=== PATIENT | female | born 1965 | race Caucasian/White ===

== ENCOUNTER 2017-05-13 15:10 | Observation (INO) ==
[2017-05-13] MEDS ORDERED: *HR* HYDROmorphone (PF) 1 MG/ML SYRINGE IVP ONE ×2 (15:51→17:38)
[2017-05-13] MEDS ORDERED: Ondansetron 4 MG/2 ML VIAL IVP ONE (16:45)
[2017-05-13 16:54] LABS: Basophils % 0.4 %; Eosinophils # 0.2 K/mcL (0.0-0.6); Eosinophils % 1.3 %; Hemoglobin 15.1 g/dL (11.5-15.4); Immature Granulocytes % 0.4 % (0-4); Lymphocytes # 1.9 K/mcL (0.6-4.6); Lymphocytes % 17.2 %; Mean Corpuscular HGB Conc 32.8 g/dL (31.6-35.5); Mean Corpuscular Hemoglobin 31.3 pg (28.0-33.3); Mean Corpuscular Volume 95.4 fL (83.0-100.0); Mean Platelet Volume 10.7 fL (9.4-12.4); Monocytes # 0.6 K/mcL (0.0-1.3); Monocytes % 5.5 %; Neutrophils # 8.4 K/mcL (1.6-8.9); Platelet Count 228 K/mcL (140-400); Red Blood Count 4.82 M/mcL (3.82-4.97); Red Cell Distribution Width 12.9 % (11.5-14.5); Segmented Neutrophils % 75.2 %
[2017-05-13 17:08] LABS: Alanine Aminotransferase 37 Units/L (0-55); Albumin 3.7 g/dL (3.5-5.0); Albumin/Globulin Ratio 1.2 (1.1-2.2); Alkaline Phosphatase 104 Units/L (38-126); Aspartate Amino Transferase 21 Units/L (5-34); BUN/Creatinine Ratio 15 (6-26); Blood Urea Nitrogen 12 mg/dL (7-20); Calcium 10.2 mg/dL (8.6-10.8); Carbon Dioxide 23 mEq/L (19-29); Chloride 109 mEq/L (98-109); Globulin 3.2 g/dL (2.4-3.5); Glucose 100 mg/dL (70-99); Osmolality,Calculated 292 (280-300); Potassium 4.1 mEq/L (3.5-4.5); Sodium 141 mEq/L (136-145); Total Protein 6.9 g/dL (6.0-8.3); eGFR For African Americans > 60 (> 60); eGFR For Non-African Americans > 60 (> 60)
[2017-05-13 17:17] LABS: Bilirubin,Total 0.5 mg/dL (0.2-1.2)
[2017-05-13] MEDS ORDERED: Ondansetron 4 MG/2 ML VIAL IVP PRN (18:13)
[2017-05-13] MEDS ORDERED: *HR* Morphine 2 MG/ML SYRINGE IVP PRN (18:13)
[2017-05-13] MEDS ORDERED: Naloxone 0.4 MG/ML INJ IVP PRN (18:13)
[2017-05-13] MEDS ORDERED: Ketorolac 15 MG/ML VIAL IVP PRN (18:13)
[2017-05-13] MEDS ORDERED: *HR* Promethazine 25 MG/ML VIAL IVP PRN (18:13)
[2017-05-13] MEDS ORDERED: 0.9 % Sodium Chloride 1,000 ML IVC SCH (18:15)
[2017-05-13 18:44] LABS: Bilirubin,Urine Negative (Negative); Blood,Urine Large (Negative); Clarity,Urine Cloudy (Clear); Color,Urine Yellow (Yellow); Glucose,Urine (UA) Normal (Normal); Ketones,Urine Negative (Negative); Leukocyte Esterase,Urine Small (Negative); Nitrite,Urine Negative (Negative); Protein,Urine Trace mg/dL (Neg-Trace); Specific Gravity,Urine 1.023 (1.010-1.025); Urobilinogen,Urine Normal (Normal)
[2017-05-13 18:45] LABS: Bacteria,Urine None Seen per hpf (None-Few); Hyaline Casts,Urine None Seen per lpf (None-Few); RBC,Urine TNTC per hpf (0-3); Squamous Epithelial Cell,Urine Many per lpf (None-Few)
[2017-05-13 19:16] LABS: Uric Acid Crystals,Urine Present
[2017-05-13] MEDS ORDERED: *HR* HYDROcodone/Acet 5/325 mg TABLET PO PRN (20:00)
--- NOTE | 2017-05-13 20:04 | Urology History & Physical ---
Date of Encounter: 05/13/17 Time of Encounter: 20:02 Assessment and Plan (1) Ureteral stone with hydronephrosis Current Visit: No Status: Acute I personally reviewed the CT scan which reveals a 8 mm proximal ureteral stone. Her pain has not allowed her to be discharged to manage the stone on an outpatient basis. Based on the large stone and proximal position we'll proceed with cystoscopy and ureteral stent placement. We did discuss alternative options including in situ stone extraction, outpatient ESWL, nephrostomy tube placement. Patient agrees with stent placement. We discussed the risks including injury to her urinary tract, stent discomfort, stricture, reaction to contrast. We'll follow urine culture but I do not suspect a urinary tract infection. History of Present Illness Chief complaint: left flank pain HPI: Ms. Whitfield is a 52 year old female with a strong history of kidney stones. Recent onset of left flank pain. Quite severe requiring emergency room visit. CT scan in the emergency room revealed an 8 mm ureteropelvic junction stone with moderate hydronephrosis. Intractable pain requiring admission. Past Med Surg Social Fam HX - Past Medical History Medical history: arthritis, coronary artery disease, GERD, hyperlipidemia, kidney stones Psychiatric history: no psych history - Past Surgical History Surgical History: appendectomy, , cholecystectomy, orthopedic, other - Social History Smoking Status: Current every day smoker Packs per day: 1 Smokeless Tobacco Status: No Alcohol use: occasionally Drug use: none - Family History Mother Living Status: Hx Family Cardiac Disorders: Yes Hx Family Respiratory Disorders: No Hx Family Cancer: Yes (Colon Cancer) Hx Family GI Disorders: Yes Hx Family Endocrine Disorder: Yes (Grandfather) Hx Family Neuromuscular Disorders: No Hx Family Neurologic Disorders: No Hx Family HEENT Disorders: No Hx Family Autoimmune Disorders: No Medications and Allergies Atorvastatin Calcium [Lipitor] 40 mg PO HS 11/13/15 [History] Isosorbide MONOnitrate (24 HR) [Imdur] 60 mg PO HS #0 11/13/15 [History] Meloxicam [Mobic] 15 mg PO HS 11/13/15 [History] Metoprolol [Lopressor] 12.5 mg PO BID 11/13/15 [History] Nitroglycerin [Nitrostat] 0.4 mg SL Q5M PRN 11/13/15 [History] Pantoprazole Sodium [Protonix] 20 mg PO BID 11/13/15 [History] Ranolazine [Ranexa] 1,000 mg PO DAILY 11/13/15 [History] Aspirin Enteric Coated [Aspirin EC] 81 mg PO DAILY 11/22/15 [History] HYDROcodone/Acet 5/325 mg [[place] 5-325 mg] 1 tab PO Q6H PRN 05/13/17 [History] 3 Allergy/AdvReac Type Severity Reaction Status Date / Time Amoxicillin [From Augmentin] Allergy Hives Verified 07/18/16 09:14 clavulanic acid Allergy Hives Verified 07/18/16 09:14 [From Augmentin] Sulfa (Sulfonamide AdvReac yeast Verified 07/18/16 09:14 Antibiotics) infection Review of Systems - Constitutional fatigue, no chills, no fever(s) - EENT Nose, mouth and throat: no dizziness - Cardiovascular no chest pain - Respiratory no cough - Gastrointestinal abdominal pain, nausea - Genitourinary Genitourinary: flank pain - Musculoskeletal back pain - Integumentary no erythema - Neurological no confusion - Psychiatric no anxiety - Hematologic/Lymphatic no easy bleeding - Allergic/Immunologic no throat swelling Exam Initial Vital Signs Temp Pulse Resp BP Pulse Ox 98 F 86 18 165/92 98 05/13/17 15:23 05/13/17 15:23 05/13/17 15:23 05/13/17 15:23 05/13/17 15:23 - General physical appearance Present: well developed, no distress - Eyes Present: PERRL - ENT Present: normal nares - Neck Present: no masses - Respiratory Present: normal respiratory effort - Cardiovascular Cardiovascular exam IM: RRR - Abdomen Abdomen: Present: soft - Integumentary Present: no rash - Neurologic Present: normal coordination. Absent: disoriented, confused - Additional Findings left CVA tenderness Urology Results - Labs 05/13/17 16:38 05/13/17 16:38 Abnormal lab results Hct 46.0 % (35.3-44.9) H 05/13/17 16:38 Glucose 100 mg/dL (70-99) H 05/13/17 16:38 Urine Clarity Cloudy (Clear) A 05/13/17 18:33 Urine Blood Large (Negative) H 05/13/17 18:33 Ur Leukocyte Esterase Small (Negative) H 05/13/17 18:33 Urine Microscopic RBC TNTC per hpf (0-3) H 05/13/17 18:33 Urine Microscopic WBC 5-15 per hpf (0-3) H 05/13/17 18:33 Ur Squamous Epith Cells Many per lpf (None-Few) H 05/13/17 18:33 Ur Culture Indicated? YES (NO) A 05/13/17 18:33 All other labs normal.
[2017-05-13] MEDS: Nicotine 21 MG PATCH.TD24 TD SCH (21:21)
[2017-05-13] MEDS: *HR* HYDROmorphone (PF) 1 MG/ML SYRINGE IVP PRN (22:37)
--- NOTE | 2017-05-13 23:09 | Emergency Department Note ---
Disposition Clinical Impression: Kidney stone Disposition: Admitted As Inpatient Condition: Fair General Adult HPI - General Chief complaint: ED Back Pain/Injury Stated complaint: kidney stone Time Seen by Provider: 05/13/17 15:27 Source: patient Limitations: no limitations Nursing Notes Reviewed: Yes Vital Signs Reviewed: Yes - History of Present Illness HPI Narrative: This is a 52-year-old female presents with complaints of left flank pain. The onset of her pain was earlier today. The symptoms are similar to when she had passed kidney stones. She complains of isolated flank pain without dysuria. She has no fever, vomiting, recent trauma. She does follow with Dr. Morton in urology. General: No acute distress HEENT: Pupils equal and reactive to light, extraoccular muscle movement is normal, TMS are clear bilaterally. Heart: RRR, No murmor rub or gallop Lungs: lungs clear, no wheezing, rales or ronchi. ABD: Left flank pain with significant CVA tenderness on examination Extremities: No cyanosis, clubbing or edema Neuro: CN 2-12 in tact, no focal deficit. strength 5/5. Medical decision making This is a 52-year-old male patient presents with concern for flank pain. Findings are consistent with obstructive uropathy. 8 mm stone at the UPJ. Plan to admit for evaluation by urological services. Patient will be admitted for pain control. I did discuss the case with Dr. Morton who is agreeable to admit the patient for pain control. Patient will be nothing by mouth after midnight. Pain Scale: 10 - Related Data Home Medications Medication Instructions Recorded Confirmed Atorvastatin Calcium [Lipitor] 40 mg PO HS 11/13/15 05/13/17 Isosorbide MONOnitrate (24 HR) 60 mg PO HS #0 11/13/15 05/13/17 [Imdur] Meloxicam [Mobic] 15 mg PO HS 11/13/15 05/13/17 Metoprolol [Lopressor] 12.5 mg PO BID 11/13/15 05/13/17 Nitroglycerin [Nitrostat] 0.4 mg SL Q5M PRN 11/13/15 05/13/17 Pantoprazole Sodium [Protonix] 20 mg PO BID 11/13/15 05/13/17 Ranolazine [Ranexa] 1,000 mg PO DAILY 11/13/15 05/13/17 Aspirin Enteric Coated [Aspirin EC] 81 mg PO DAILY 11/22/15 05/13/17 HYDROcodone/Acet 5/325 mg [[place] 1 tab PO Q6H PRN 05/13/17 05/13/17 5-325 mg] Allergies Allergy/AdvReac Type Severity Reaction Status Date / Time Amoxicillin [From Augmentin] Allergy Hives Verified 07/18/16 09:14 clavulanic acid Allergy Hives Verified 07/18/16 09:14 [From Augmentin] Sulfa (Sulfonamide AdvReac yeast Verified 07/18/16 09:14 Antibiotics) infection All systems ED: reviewed and negative except as stated. Past Medical History - Past Medical History Medical history: Reports: arthritis, coronary artery disease, GERD, hyperlipidemia, kidney stones Surgical history: Reports: appendectomy, , cholecystectomy, orthopedic , other Psychiatric history: Reports: no psych history NEWSPAPER JOURNALIST history: Reports: no NEWSPAPER JOURNALIST history - Social History Smoking Status: Current every day smoker Smokeless Tobacco Status: No Alcohol use: Reports: occasionally Drug use: Reports: none Physical Exam - General Limitations: no limitations General appearance: alert, in no apparent distress Course Vital Signs Temperature 98 F 05/13/17 15:23 Pulse Rate 86 05/13/17 15:23 Respiratory Rate 18 05/13/17 15:23 Blood Pressure 165/92 05/13/17 15:23 O2 Sat by Pulse Oximetry 98 05/13/17 15:23 Temperature 97.9 F 05/13/17 16:06 Pulse Rate 75 05/13/17 16:06 Respiratory Rate 20 05/13/17 16:06 Blood Pressure 156/84 05/13/17 16:06 O2 Sat by Pulse Oximetry 96 05/13/17 19:29 Oxygen Delivery Oxygen Delivery Room Air Medical Decision Making - Lab Data Result diagrams: 05/13/17 16:38 05/13/17 16:38 Lab Results 05/13/17 05/13/17 Range/Units 16:38 16:38 WBC 11.1 (4.3-11.1) K/mcL RBC 4.82 (3.82-4.97) M/mcL Hgb 15.1 (11.5-15.4) g/dL Hct 46.0 H (35.3-44.9) % MCV 95.4 (83.0-100.0) fL MCH 31.3 (28.0-33.3) pg MCHC 32.8 (31.6-35.5) g/dL RDW 12.9 (11.5-14.5) % Plt Count 228 (140-400) K/mcL MPV 10.7 (9.4-12.4) fL Immature Gran % 0.4 (0-4) % Seg Neutrophils % 75.2 % Lymphocytes % 17.2 % Monocytes % 5.5 % Eosinophils % 1.3 % Basophils % 0.4 % Neutrophils # 8.4 (1.6-8.9) K/mcL Lymphocytes # 1.9 (0.6-4.6) K/mcL Monocytes # 0.6 (0.0-1.3) K/mcL Eosinophils # 0.2 (0.0-0.6) K/mcL Basophils # 0.0 (0.0-0.2) K/mcL Sodium 141 (136-145) mEq/L Potassium 4.1 (3.5-4.5) mEq/L Chloride 109 (98-109) mEq/L Carbon Dioxide 23 (19-29) mEq/L BUN 12 (7-20) mg/dL Creatinine 0.82 (0.57-1.11) mg/dL Est GFR ( Amer) > 60 (> 60) Est GFR (Non-Af Amer) > 60 (> 60) BUN/Creatinine Ratio 15 (6-26) Glucose 100 H (70-99) mg/dL Calculated Osmolality 292 (280-300) Calcium 10.2 (8.6-10.8) mg/dL Total Bilirubin 0.5 (0.2-1.2) mg/dL AST 21 (5-34) Units/L ALT 37 (0-55) Units/L Alkaline Phosphatase 104 (38-126) Units/L Serum Total Protein 6.9 (6.0-8.3) g/dL Albumin 3.7 (3.5-5.0) g/dL Globulin 3.2 (2.4-3.5) g/dL Albumin/Globulin Ratio 1.2 (1.1-2.2)
[2017-05-14] MEDS: *HR* HYDROmorphone (PF) 1 MG/ML SYRINGE IVP PRN ×4 (02:46→09:58)
[2017-05-14] MEDS: Nicotine 21 MG PATCH.TD24 TD SCH (08:05)
[2017-05-14] MEDS ORDERED: levoFLOXacin 500 MG TABLET PO SCH (09:00)
--- NOTE | 2017-05-14 12:06 | Anesthesia Evaluation PreOp ---
Date of Encounter: 05/14/17 Time of Encounter: 12:04 - Past History Planned Operation: Left Cystoscopy with stent insertion Cardiac History: HTN, Hyperlipidemia, Cardiac Stent (2010) Pulmonary History: Smoker Other Medical History: Renal (Stones), GERD Anesthesia History: Past Anesthesia (EGD,Kidney stones , appy, GB) : No Alcohol Use: occasionally Drug use: none Medications and Allergies Atorvastatin Calcium [Lipitor] 40 mg PO HS 11/13/15 [History] Isosorbide MONOnitrate (24 HR) [Imdur] 60 mg PO HS #0 11/13/15 [History] Meloxicam [Mobic] 15 mg PO HS 11/13/15 [History] Metoprolol [Lopressor] 12.5 mg PO BID 11/13/15 [History] Nitroglycerin [Nitrostat] 0.4 mg SL Q5M PRN 11/13/15 [History] Pantoprazole Sodium [Protonix] 20 mg PO BID 11/13/15 [History] Ranolazine [Ranexa] 1,000 mg PO DAILY 11/13/15 [History] Aspirin Enteric Coated [Aspirin EC] 81 mg PO DAILY 11/22/15 [History] HYDROcodone/Acet 5/325 mg [[place] 5-325 mg] 1 tab PO Q6H PRN 05/13/17 [History] 3 Allergy/AdvReac Type Severity Reaction Status Date / Time Amoxicillin [From Augmentin] Allergy Hives Verified 07/18/16 09:14 clavulanic acid Allergy Hives Verified 07/18/16 09:14 [From Augmentin] Sulfa (Sulfonamide AdvReac yeast Verified 07/18/16 09:14 Antibiotics) infection - Meds/Allergy Pre-op Review Medications Reviewed: Yes Allergies Reviewed: Yes Beta Blockers on Current Med List: No Anesthesia Results - Labs 05/13/17 16:38 05/13/17 16:38 - Imaging EKG: image reviewed (SR) Anesthesia Exam O2 Sat Height 1.63 m Height 1.63 m Weight 85.7 kg Weight 76.204 kg O2 Sat by Pulse Oximetry 90 O2 Sat by Pulse Oximetry 91 O2 Sat by Pulse Oximetry 95 O2 Sat by Pulse Oximetry 94 O2 Sat by Pulse Oximetry 96 O2 Sat by Pulse Oximetry 96 O2 Sat by Pulse Oximetry 98 Vital Signs Temp Pulse Resp BP Pulse Ox 98 F 86 18 165/92 98 05/13/17 15:23 05/13/17 15:23 05/13/17 15:23 05/13/17 15:23 05/13/17 15:23 Vital Signs/O2 Sat, Most Current Temp Pulse Resp BP Pulse Ox 98.3 F 63 16 103/68 90 05/14/17 10:36 05/14/17 10:36 05/14/17 10:36 05/14/17 10:36 05/14/17 10:36 Height: 5'4'' Weight: 188# NPO (# of Hours): > 8 hrs Pain Scale: 0 Pain Scale Used: Numeric (1 - 10) - HEENT Pupil (Motor): Pupils equal, EOMI Mallampati: I Teeth: Edentulous Oral Opening: Greater than 3 - GRASSLAND CONSERVATIONIST LOC: Oriented GRASSLAND CONSERVATIONIST Motor: Normal RUE, Normal LUE, Normal RLE, Normal LLE, Normal Face GRASSLAND CONSERVATIONIST Sensory: Normal: RUE, LUE, RLE, LLE, Face - Cardiac Rhythm: Regular Murmur: None JVD: No Carotid Bruit: No - Pulmonary Breath Sounds: bilateral Clear Respiratory Effort: Symmetrical Anesthesia Assess/Plan ASA Score: 3 Modified [place] Scale for Level of Consciousness: Cooperative, oriented, and tranquil Anesthetic Plan: General Autologous Blood: Yes Monitoring Plan: Standard Monitors Recovery Plan: PACU
[2017-05-14] MEDS ORDERED: Scopolamine Patch 1.5 MG PATCH.TD72 TD ONE (12:13)
[2017-05-14] MEDS ORDERED: Scopolamine Patch 1.5 MG PATCH.TD72 ONE (12:19)
[2017-05-14] MEDS ORDERED: *HR* FentaNYL (PF) 100 MCG/2 ML VIAL ONE (12:20)
[2017-05-14] MEDS ORDERED: *HR* Rocuronium Bromide 50 MG/5 ML VIAL ONE (12:20)
[2017-05-14] MEDS ORDERED: *HR* Propofol 200 MG/20 ML VIAL IVP ONE (12:20)
[2017-05-14] MEDS ORDERED: *HR* Succinylcholine 200 MG/10 ML VIAL IVP ONE (12:20)
[2017-05-14] MEDS ORDERED: *HR* Midazolam HCl 2 MG/2 ML VIAL ONE (12:20)
[2017-05-14] MEDS ORDERED: Lidocaine -MPF 2% 2 ML VIAL ONE (12:20)
--- NOTE | 2017-05-14 12:21 | Discharge Summary ---
Date of Encounter: 05/14/17 Time of Encounter: 12:18 - Discharge Diagnosis (1) Ureteral stone with hydronephrosis Priority: Primary Status: Resolved Comments: s/p stent - Discharge Medications Prescriptions: HYDROcodone/Acet 5/325 mg [[place] 5-325 mg] 1 tab PO Q4HR PRN #15 tablet PRN Reason: MODERATE PAIN Phenazopyridine HCl [Pyridium] 200 mg PO TIDAC PRN #15 tab PRN Reason: burning with urination Home Medications: Atorvastatin Calcium [Lipitor] 40 mg PO HS 11/13/15 [History] Isosorbide MONOnitrate (24 HR) [Imdur] 60 mg PO HS #0 11/13/15 [History] Meloxicam [Mobic] 15 mg PO HS 11/13/15 [History] Metoprolol [Lopressor] 12.5 mg PO BID 11/13/15 [History] Nitroglycerin [Nitrostat] 0.4 mg SL Q5M PRN 11/13/15 [History] Pantoprazole Sodium [Protonix] 20 mg PO BID 11/13/15 [History] Ranolazine [Ranexa] 1,000 mg PO DAILY 11/13/15 [History] Aspirin Enteric Coated [Aspirin EC] 81 mg PO DAILY 11/22/15 [History] HYDROcodone/Acet 5/325 mg [[place] 5-325 mg] 1 tab PO Q4HR PRN #15 tablet [Rx] Phenazopyridine HCl [Pyridium] 200 mg PO TIDAC PRN #15 tab 05/14/17 [Rx] Allergies/Adverse Reactions: 3 Allergy/AdvReac Type Severity Reaction Status Date / Time Amoxicillin [From Augmentin] Allergy Hives Verified 07/18/16 09:14 clavulanic acid Allergy Hives Verified 07/18/16 09:14 [From Augmentin] Sulfa (Sulfonamide AdvReac yeast Verified 07/18/16 09:14 Antibiotics) infection Labs on day of discharge: Labs from last 24 hours 05/13/17 18:33 Urine Color Yellow Urine Clarity Cloudy A Urine pH 6.0 Ur Specific [place] 1.023 Urine Protein Trace Urine Glucose (UA) Normal Urine Ketones Negative Urine Blood Large H Urine Nitrite Negative Urine Bilirubin Negative Urine Urobilinogen Normal Ur Leukocyte Esterase Small H Urine Microscopic RBC TNTC H Urine Microscopic WBC 5-15 H Ur Squamous Epith Cells Many H Uric Acid Crystals Present Urine Bacteria None Seen Hyaline Casts None Seen Ur Culture Indicated? YES A Date of admission: 05/13/17 17:53 [facility] Discharging clinician: Law Morton Anticipated date of discharge: 05/14/17 - Patient Status Disposition: Home, Self-Care Condition: Good Functional capacity at discharge: independent ambulation - Discharge Instructions Follow Up With: [facility] [Primary Care Provider] - Law Morton MD [Partnered Physician] - (my office will call to schedule stone procedure. ) Forms: ED Satisfaction Letter Additional Instructions: expect stent discomfort call if symptoms are severe my office will call to arrange followup surgery for kidney stone. - Diet and Activity Activity: resume usual activities as tolerated Diet: advance to your usual diet - Hospital Course Hospital course: Ms. Whitfield is a 52 year old female admitted with a 8 mm UPJ stone. intractable pain. s/p stent placement. plan to discharge if pain controlled. - Time Spent with Patient Total time spent providing and/or coordinating discharge services: Exam Initial Vital Signs Temp Pulse Resp BP Pulse Ox 98 F 86 18 165/92 98 05/13/17 15:23 05/13/17 15:23 05/13/17 15:23 05/13/17 15:23 05/13/17 15:23 - General physical appearance Present: well developed, no distress
--- NOTE | 2017-05-14 12:28 | Operative Note ---
Date of procedure: 05/14/17 Pre-op diagnosis: 8 mm left UPJ stone Post-op diagnosis: same Procedure: cystoscopy, left retrograde pyelogram. left JJ stent Anesthesia: DANIAA Surgeon: Law Morton Estimated blood loss (cc): 0 Specimen: none Condition: stable Disposition: PACU Procedure in Detail: patient taken to the OR and placed supine. anesthesia applied without complication. she was prepped and draped in a sterile fashion. time out was performed. 21 uzbek scope placed. no gross abnormalities except dark orange urine. left UO cannulated and retrograde was performed which showed large filling defect. zip wire placed and 4.8 x 26 stent placed without complication. bladder drained. no complications.
[2017-05-14] MEDS ORDERED: Ondansetron 4 MG/2 ML VIAL IVP ONE (12:51)
[2017-05-14] MEDS ORDERED: *HR* HYDROmorphone (PF) 1 MG/ML SYRINGE IVP PRN ×2 (12:51→14:10)
[2017-05-14] MEDS ORDERED: *HR* Promethazine 25 MG/ML VIAL IVP PRN ×2 (12:51→14:10)
[2017-05-14] MEDS ORDERED: Dexamethasone 4 MG/ML VIAL ONE (12:53)
[2017-05-14] MEDS ORDERED: Ondansetron 4 MG/2 ML VIAL ONE (12:53)
[2017-05-14] MEDS ORDERED: Ringers Solution, Lactated 1,000 ML IVC SCH (13:00)
[2017-05-14 13:44] VITALS: BP 127/79
--- NOTE | 2017-05-14 13:57 | Anesthesia Evaluation Post Op ---
Date of Encounter: 05/14/17 Time of Encounter: 13:54 - Vital Signs Vital Signs: Vital Signs/O2 Sat, Most Current Temp Pulse Resp BP Pulse Ox 98.2 F 52 16 127/79 96 05/14/17 13:00 05/14/17 13:40 05/14/17 13:40 05/14/17 13:40 05/14/17 13:40 - Lungs Lungs: Clear Ascult./Percussion - Airway Airway: Non-obstructed - Cardiovascular Regular Rate - Mental Status Mental Status: Alert & Oriented, Answers Appropriately - Pain Pain Scale: 0 Pain Scale used: Numeric (1 - 10) - Nausea Vomiting Nausea Vomiting: Not Present - Hydration Hydration: Tolerates oral liquids - Discharge PostOp Status: Transfer Patient to floor Attestation: I have assessed this patient and find they meet discharge criteria.
[2017-05-14] MEDS ORDERED: Naloxone 0.4 MG/ML INJ IVP PRN (14:10)
[2017-05-14] MEDS ORDERED: Fluconazole 100 MG TABLET PO ONE (14:10)
[2017-05-14] MEDS ORDERED: *HR* Morphine 2 MG/ML SYRINGE IVP PRN (14:10)
[2017-05-14] MEDS ORDERED: Ketorolac 15 MG/ML VIAL IVP PRN (14:10)
[2017-05-14] MEDS ORDERED: 0.9 % Sodium Chloride 1,000 ML IVC SCH (14:10)
[2017-05-14] MEDS ORDERED: Ondansetron 4 MG/2 ML VIAL IVP PRN (14:10)
[2017-05-14] MEDS ORDERED: Nitroglycerin 0.4 MG TAB.SUBL SL PRN (14:10)
[2017-05-14] MEDS ORDERED: *HR* HYDROcodone/Acet 5/325 mg TABLET PO PRN ×2 (14:10)
[2017-05-14] MEDS ORDERED: Isosorbide MONOnitrate (24 HR) 60 MG TAB.ER.24H PO SCH (21:00)
[2017-05-15] MEDS ORDERED: Nicotine 21 MG PATCH.TD24 TD SCH (09:00)
[2017-05-15] MEDS ORDERED: Ranolazine 500 MG TAB.ER.12H PO SCH (09:00)
[2017-05-15] MEDS ORDERED: levoFLOXacin 500 MG TABLET PO SCH (09:00)
[2017-05-15] MEDS ORDERED: Aspirin Enteric Coated 81 MG Tablet PO SCH (09:00)
== END 2017-05-14 16:43 | disposition home or self-care (01) ==
LOC: EMEROO 15:10 → 3BNU 15:10 → UNDODISOB 18:30 → 3BNU 19:09
PROVIDERS: ADMIT Urology; ATTEND Urology

== ENCOUNTER 2018-04-24 20:18 | Inpatient (IN) ==
--- NOTE | 2018-04-24 22:01 | Emergency Department Note ---
Disposition Clinical Impression: Right ureteral stone, Right flank pain Disposition: Admitted As Inpatient Condition: Fair General Adult HPI - General Chief complaint: ED Abdominal Pain Stated complaint: Kidney Stone Time Seen by Provider: 04/24/18 21:55 - History of Present Illness Pain Scale: 10 - Related Data Home Medications Medication Instructions Recorded Confirmed RX: Atorvastatin Calcium [Lipitor] 40 mg PO HS 11/13/15 05/30/17 RX: Isosorbide MONOnitrate (24 HR) 60 mg PO HS #0 11/13/15 05/30/17 [Imdur] RX: Meloxicam [Mobic] 15 mg PO HS 11/13/15 05/30/17 RX: Metoprolol [Lopressor] 12.5 mg PO BID 11/13/15 05/30/17 RX: Nitroglycerin [Nitrostat] 0.4 mg SL Q5M PRN 11/13/15 05/30/17 RX: Pantoprazole Sodium [Protonix] 20 mg PO BID 11/13/15 05/30/17 RX: Ranolazine [Ranexa] 1,000 mg PO DAILY 11/13/15 05/30/17 RX: Aspirin Enteric Coated 81 mg PO DAILY 11/22/15 05/30/17 [Aspirin EC] Previous Rx's Medication Instructions Recorded Alfuzosin HCl [Uroxatral] 10 mg PO DAILY #7 tab.er.24h 05/30/17 Fluconazole [Diflucan] 150 mg PO DAILY #1 tab 05/30/17 RX: HYDROcodone/Acet 5/325 mg 1 tab PO Q4HR PRN #15 tablet 05/30/17 [[place] 5-325 mg] levoFLOXacin [Levaquin] 500 mg PO DAILY #3 tablet 05/30/17 Allergies Allergy/AdvReac Type Severity Reaction Status Date / Time Amoxicillin [From Augmentin] Allergy Hives Verified 04/24/18 21:02 clavulanic acid Allergy Hives Verified 04/24/18 21:02 [From Augmentin] Sulfa (Sulfonamide AdvReac yeast Verified 04/24/18 21:02 Antibiotics) infection Past Medical History - Past Medical History Medical history: Reports: arthritis, coronary artery disease, GERD, hyperlipidemia, kidney stones Surgical history: Reports: appendectomy, , cholecystectomy, orthopedic, other Psychiatric history: Reports: no psych history PURCHASING EXPEDITOR history: Reports: no PURCHASING EXPEDITOR history - Social History Smoking Status: Current every day smoker Smokeless Tobacco Status: No Alcohol use: Reports: occasionally Drug use: Reports: none Course Vital Signs Temperature 98.1 F 04/24/18 21:00 Pulse Rate 95 04/24/18 21:00 Respiratory Rate 18 04/24/18 21:00 Blood Pressure 120/83 04/24/18 21:00 O2 Sat by Pulse Oximetry 93 04/24/18 21:00 Temperature 98 F 04/25/18 07:48 Pulse Rate 63 04/25/18 07:48 Respiratory Rate 16 04/25/18 07:48 Blood Pressure 98/59 04/25/18 07:48 O2 Sat by Pulse Oximetry 92 04/25/18 07:48 Oxygen Delivery Oxygen Delivery Room Air Medical Decision Making - Lab Data Result diagrams: 04/25/18 00:18 04/25/18 00:18 Lab Results 04/24/18 04/25/18 04/25/18 Range/Units 23:54 00:18 00:18 WBC 11.9 H (4.3-11.1) K/mcL RBC 4.73 (3.82-4.97) M/mcL Hgb 14.7 (11.5-15.4) g/dL Hct 44.8 (35.3-44.9) % MCV 94.7 (83.0-100.0) fL MCH 31.1 (28.0-33.3) pg MCHC 32.8 (31.6-35.5) g/dL RDW 13.1 (11.5-14.5) % Plt Count 238 (140-400) K/mcL MPV 9.9 (9.4-12.4) fL Immature Gran % 0.4 (0-4) % Seg Neutrophils % 70.9 % Lymphocytes % 21.2 % Monocytes % 5.6 % Eosinophils % 1.3 % Basophils % 0.6 % Neutrophils # 8.5 (1.6-8.9) K/mcL Lymphocytes # 2.5 (0.6-4.6) K/mcL Monocytes # 0.7 (0.0-1.3) K/mcL Eosinophils # 0.2 (0.0-0.6) K/mcL Basophils # 0.1 (0.0-0.2) K/mcL Sodium 141 (136-145) mEq/L Potassium 3.8 (3.5-5.1) mEq/L Chloride 107 (98-107) mEq/L Carbon Dioxide 26 (23-29) mEq/L BUN 19 (6-20) mg/dL Creatinine 0.81 (0.60-1.20) mg/dL Est GFR ( Amer) > 60 (> 60) Est GFR (Non-Af Amer) > 60 (> 60) BUN/Creatinine Ratio 23 (6-26) Glucose 104 (70-105) mg/dL Calculated Osmolality 295 (280-300) Calcium 10.2 (8.6-10.3) mg/dL Urine Color Yellow (Yellow) Urine Clarity Cloudy A (Clear) Urine pH 6.0 (5.0-8.0) pH Units Ur Specific [place] 1.028 H (1.010-1.025) Urine Protein 100 H (Neg-Trace) mg/dL Urine Glucose (UA) Normal (Normal) mg/dL Urine Ketones Negative (Negative) mg/dL Urine Blood Moderate H (Negative) Urine Nitrite Negative (Negative) Urine Bilirubin Negative (Negative) Urine Urobilinogen Normal (Normal) mg/dL Ur Leukocyte Esterase Moderate H (Negative) Urine Microscopic RBC 50-100 H (0-3) per hpf Urine Microscopic WBC TNTC H (0-3) per hpf Ur Squamous Epith Cells Many H (None-Few) per lpf Urine Bacteria None Seen (None-Few) per hpf Hyaline Casts None Seen (None-Few) per lpf Attestation Statement - Attestation Attestation: I examined this patient and my medical decision-making was reviewed with the Resident Physician. I agree with the documented findings, disposition and treatment plan as described except to the extent set forth below. [id number] time provided Patient with flank pain. History of ureterolithiasis. Uncomfortable on exam
[2018-04-24] MEDS ORDERED: Ketorolac 15 MG/ML VIAL IVP ONE (22:04)
[2018-04-24] MEDS ORDERED: *HR* FentaNYL (PF) 100 MCG/2 ML VIAL IVP ONE ×2 (22:04→22:34)
--- NOTE | 2018-04-24 22:07 | Emergency Department Note ---
Disposition Clinical Impression: Right ureteral stone, Right flank pain Disposition: Admitted As Inpatient Condition: Fair [facility]errals: [facility] [Primary Care Provider[facility] - Forms: ED Satisfaction Letter, Work/School Release Time of Disposition: 01:11 Abdominal Pain HPI - General Chief Complaint: ED Abdominal Pain Stated Complaint: Kidney Stone Time Seen by Provider: 04/24/18 21:55 Source: patient Mode of arrival: ambulatory Limitations: no limitations Nursing Notes Reviewed: Yes Vital Signs Reviewed: Yes - History of Present Illness HPI Narrative: Patient is a 53-year-old female with past medical history of kidney stones. She presents today due to right-sided flank pain. She states that this started yesterday. Described as a dull ache in the right flank. No radiation anywhere else. States that it feels like all previous kidney stones. It is colicky in nature. She does report a history of multiple kidney stones in the past, 2-3 of which have required stents and one required lithotripsy. She denies any nausea or vomiting, fevers, diarrhea, constipation, dysuria, hematuria, vaginal bleeding or discharge, chest pain, shortness of breath. Pain Scale: 10 - Related Data Home Medications Medication Instructions Recorded Confirmed Atorvastatin Calcium [Lipitor] 40 mg PO HS 11/13/15 05/30/17 Isosorbide MONOnitrate (24 HR) 60 mg PO HS #0 11/13/15 05/30/17 [Imdur] Meloxicam [Mobic] 15 mg PO HS 11/13/15 05/30/17 Metoprolol [Lopressor] 12.5 mg PO BID 11/13/15 05/30/17 Nitroglycerin [Nitrostat] 0.4 mg SL Q5M PRN 11/13/15 05/30/17 Pantoprazole Sodium [Protonix] 20 mg PO BID 11/13/15 05/30/17 Ranolazine [Ranexa] 1,000 mg PO DAILY 11/13/15 05/30/17 Aspirin Enteric Coated [Aspirin EC] 81 mg PO DAILY 11/22/15 05/30/17 Previous Rx's Medication Instructions Recorded Alfuzosin HCl [Uroxatral] 10 mg PO DAILY #7 tab.er.24h 05/30/17 Fluconazole [Diflucan] 150 mg PO DAILY #1 tab 05/30/17 HYDROcodone/Acet 5/325 mg [[place] 1 tab PO Q4HR PRN #15 tablet 05/30/17 5-325 mg] levoFLOXacin [Levaquin] 500 mg PO DAILY #3 tablet 05/30/17 Allergies Allergy/AdvReac Type Severity Reaction Status Date / Time Amoxicillin [From Augmentin] Allergy Hives Verified 04/24/18 21:02 clavulanic acid Allergy Hives Verified 04/24/18 21:02 [From Augmentin] Sulfa (Sulfonamide AdvReac yeast Verified 04/24/18 21:02 Antibiotics) infection All systems ED: reviewed and negative except as stated. Constitutional: Denies: fever Cardiovascular: Denies: chest pain Respiratory: Denies: cough, dyspnea Gastrointestinal: Reports: abdominal pain (Right flank pain). 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 Psychiatric history: Reports: no psych history - Social History Smoking status: Current every day smoker Alcohol use: Reports: occasionally Drug use: Reports: none Physical Exam - General Limitations: no limitations General appearance: alert, other (Appears to be in pain, holding right side) - Head Head exam: atraumatic, normocephalic, normal inspection - Eye Eye exam: Present: normal appearance, PERRL, EOMI - ENT ENT exam: normal exam, normal oropharynx, mucous membranes moist - Neck Neck exam: Present: normal inspection, full ROM, trachea midline - Chest Chest inspection: Present: normal inspection, symmetric chest wall rise - Respiratory Respiratory exam: Present: normal lung sounds bilaterally - Cardiovascular Cardiovascular exam: Present: regular rate, normal rhythm, normal heart sounds - Abdominal Exam Abdominal exam: Present: soft, Non-Tender. Absent: tenderness, distention, guarding, rebound, rigidity - Extremities Exam Extremities exam: Present: normal inspection, full ROM. Absent: tenderness, pedal edema - Back Exam Back exam: Present: CVA tenderness (R). Absent: CVA tenderness (L), paraspinal tenderness - Neurological Exam Neurological exam: Present: alert, oriented X3 - Psychiatric Psychiatric exam: Present: normal affect, normal mood - Skin Skin exam: Present: warm, dry, intact, normal color Course Course Narrative: Due to history of obstruction with stones and stent placement required, lithotri psy required, we will go ahead and obtain CT abdomen and pelvis for further assessment. We will also give the patient Toradol and fentanyl for pain control, obtain urinalysis. 00:12 CT abdomen and pelvis shows a large right-sided kidney stone with right- sided hydronephrosis. Upon my personal measurement on the CT scan, stone is approximately 1.6 x 1.1 cm. This will require intervention and further pain control. I discussed this with the patient she is agreeable with admission. I also discussed the case with Dr. Davis with urology and he recommended admission to medicine service with urology as a consult. Currently waiting on CBC and BMP, urinalysis and then will admit for further care. 01:09 kidney function testing within normal limits. Mild elevation white blood cell count. Urinalysis shows large blood and white blood cells. Moderate leukocyte esterase. We will send for culture. We will go ahead and treat with Levaquin. Patient does report an allergy to amoxicillin with rash so Rocephin was avoided at this time. Patient was admitted to medicine service for further care. Consult to urology has been placed. Vital Signs Temperature 98.1 F 04/24/18 21:00 Pulse Rate 95 04/24/18 21:00 Respiratory Rate 18 04/24/18 21:00 Blood Pressure 120/83 04/24/18 21:00 O2 Sat by Pulse Oximetry 93 04/24/18 21:00 Temperature 98.1 F 04/24/18 22:14 Pulse Rate 72 04/25/18 00:06 Respiratory Rate 18 04/25/18 00:06 Blood Pressure 126/75 04/25/18 00:06 O2 Sat by Pulse Oximetry 95 04/25/18 00:06 Oxygen Delivery Oxygen Delivery Room Air Abdominal Pain - MDM Narrative Medical decision making narrative: Due to history of obstruction with stones and stent placement required, lithotripsy required, we will go ahead and obtain CT abdomen and pelvis for further assessment. We will also give the patient Toradol and fentanyl for pain control, obtain urinalysis. 00:12 CT abdomen and pelvis shows a large right-sided kidney stone with right- sided hydronephrosis. Upon my personal measurement on the CT scan, stone is approximately 1.6 x 1.1 cm. This will require intervention and further pain control. I discussed this with the patient she is agreeable with admission. I also discussed the case with Dr. Davis with urology and he recommended admission to medicine service with urology as a consult. Currently waiting on CBC and BMP, urinalysis and then will admit for further care. 01:09 kidney function testing within normal limits. Mild elevation white blood cell count. Urinalysis shows large blood and white blood cells. Moderate leukocyte esterase. We will send for culture. We will go ahead and treat with Levaquin. Patient does report an allergy to amoxicillin with rash so Rocephin was avoided at this time. Patient was admitted to medicine service for further care. Consult to urology has been placed. - Medical Records Medical records reviewed: Yes I reviewed the patient's medical records. - Lab Data Lab results reviewed: Yes I reviewed the patient's lab results. Result diagrams: 04/25/18 00:18 04/25/18 00:18 Lab Results 04/24/18 04/25/18 04/25/18 Range/Units 23:54 00:18 00:18 WBC 11.9 H (4.3-11.1) K/mcL RBC 4.73 (3.82-4.97) M/mcL Hgb 14.7 (11.5-15.4) g/dL Hct 44.8 (35.3-44.9) % MCV 94.7 (83.0-100.0) fL MCH 31.1 (28.0-33.3) pg MCHC 32.8 (31.6-35.5) g/dL RDW 13.1 (11.5-14.5) % Plt Count 238 (140-400) K/mcL MPV 9.9 (9.4-12.4) fL Immature Gran % 0.4 (0-4) % Seg Neutrophils % 70.9 % Lymphocytes % 21.2 % Monocytes % 5.6 % Eosinophils % 1.3 % Basophils % 0.6 % Neutrophils # 8.5 (1.6-8.9) K/mcL Lymphocytes # 2.5 (0.6-4.6) K/mcL Monocytes # 0.7 (0.0-1.3) K/mcL Eosinophils # 0.2 (0.0-0.6) K/mcL Basophils # 0.1 (0.0-0.2) K/mcL Sodium 141 (136-145) mEq/L Potassium 3.8 (3.5-5.1) mEq/L Chloride 107 (98-107) mEq/L Carbon Dioxide 26 (23-29) mEq/L BUN 19 (6-20) mg/dL Creatinine 0.81 (0.60-1.20) mg/dL Est GFR ( Amer) > 60 (> 60) Est GFR (Non-Af Amer) > 60 (> 60) BUN/Creatinine Ratio 23 (6-26) Glucose 104 (70-105) mg/dL Calculated Osmolality 295 (280-300) Calcium 10.2 (8.6-10.3) mg/dL Urine Color Yellow (Yellow) Urine Clarity Cloudy A (Clear) Urine pH 6.0 (5.0-8.0) pH Units Ur Specific [place] 1.028 H (1.010-1.025) Urine Protein 100 H (Neg-Trace) mg/dL Urine Glucose (UA) Normal (Normal) mg/dL Urine Ketones Negative (Negative) mg/dL Urine Blood Moderate H (Negative) Urine Nitrite Negative (Negative) Urine Bilirubin Negative (Negative) Urine Urobilinogen Normal (Normal) mg/dL Ur Leukocyte Esterase Moderate H (Negative) Urine Microscopic RBC 50-100 H (0-3) per hpf Urine Microscopic WBC TNTC H (0-3) per hpf Ur Squamous Epith Cells Many H (None-Few) per lpf Urine Bacteria None Seen (None-Few) per hpf Hyaline Casts None Seen (None-Few) per lpf - Radiology Data Radiology results reviewed: Yes I reviewed the patient's radiology results. Abdomen/Pelvis CT 04/24/18 22:06 IMPRESSION: Moderate to severe right hydronephrosis secondary to a 1.5 cm calculus at the right UPJ. Redemonstration of bilateral nephrolithiasis. Punctate inflammatory appearing tree-in-bud nodules within the right middle lobe, new when compared to the previous exam. Correlate with any clinical evidence of inflammatory or infectious bronchiolitis. New atelectasis is also identified within the lingula. The should be followed radiographically to resolution. D/ / Scot Gabriel MD / Scot Gabriel MD Interpreting Provider: Scot Gabriel MD [email or web address] - [place] Situation: Demographics, MOA Background: Presenting Complaint, Relevant PMH, Meds, & Allergies Assessment: Vital Signs, Course and respsone to treatment, Exam Concerns, Patient/Family Expectation, Pertinant Lab Results, Outstanding Labs (cbc, bmp, UA) Recommendation: Barrier(s) to disposition, Recommendation based on pending studies, treatments, or consults [place] Report Given to: Dr. Trae Bedolla Repor Time: 01:11
[2018-04-24] MEDS ORDERED: *HR* OxyCODONE/APAP 5/325 TABLET PO ONE (22:34)
[2018-04-24] MEDS ORDERED: Ondansetron 4 MG/2 ML VIAL IVP ONE ×2 (22:34→23:58)
[2018-04-24] MEDS ORDERED: *HR* HYDROmorphone (PF) 1 MG/ML SYRINGE IVP ONE (22:47)
[2018-04-25 00:25] LABS: Bilirubin,Urine Negative (Negative); Blood,Urine Moderate (Negative); Clarity,Urine Cloudy (Clear); Color,Urine Yellow (Yellow); Glucose,Urine (UA) Normal (Normal); Ketones,Urine Negative (Negative); Leukocyte Esterase,Urine Moderate (Negative); Nitrite,Urine Negative (Negative); Protein,Urine 100 mg/dL (Neg-Trace); Specific Gravity,Urine 1.028 (1.010-1.025); Urobilinogen,Urine Normal (Normal)
[2018-04-25 00:29] LABS: Bacteria,Urine None Seen per hpf (None-Few); Hyaline Casts,Urine None Seen per lpf (None-Few); RBC,Urine 50-100 per hpf (0-3); Squamous Epithelial Cell,Urine Many per lpf (None-Few); WBC,Urine TNTC per hpf (0-3)
[2018-04-25 00:34] LABS: Basophils # 0.1 K/mcL (0.0-0.2); Basophils % 0.6 %; Eosinophils # 0.2 K/mcL (0.0-0.6); Eosinophils % 1.3 %; Hematocrit 44.8 % (35.3-44.9); Hemoglobin 14.7 g/dL (11.5-15.4); Immature Granulocytes % 0.4 % (0-4); Lymphocytes # 2.5 K/mcL (0.6-4.6); Lymphocytes % 21.2 %; Mean Corpuscular HGB Conc 32.8 g/dL (31.6-35.5); Mean Corpuscular Hemoglobin 31.1 pg (28.0-33.3); Mean Corpuscular Volume 94.7 fL (83.0-100.0); Mean Platelet Volume 9.9 fL (9.4-12.4); Monocytes # 0.7 K/mcL (0.0-1.3); Monocytes % 5.6 %; Neutrophils # 8.5 K/mcL (1.6-8.9); Platelet Count 238 K/mcL (140-400); Red Blood Count 4.73 M/mcL (3.82-4.97); Red Cell Distribution Width 13.1 % (11.5-14.5); Segmented Neutrophils % 70.9 %
[2018-04-25 00:51] LABS: BUN/Creatinine Ratio 23 (6-26); Blood Urea Nitrogen 19 mg/dL (6-20); Calcium 10.2 mg/dL (8.6-10.3); Carbon Dioxide 26 mEq/L (23-29); Chloride 107 mEq/L (98-107); Glucose 104 mg/dL (70-105); Osmolality,Calculated 295 (280-300); Potassium 3.8 mEq/L (3.5-5.1); Sodium 141 mEq/L (136-145); eGFR For Non-African Americans > 60 (> 60)
[2018-04-25] MEDS ORDERED: Levofloxacin 750 MG/150 ML 750 MG/150 ML BAG IVPB ONE (01:09)
[2018-04-25] MEDS ORDERED: *HR* LORazepam 0.5 MG TABLET PO ONE (02:35)
[2018-04-25] MEDS ORDERED: *HR* HYDROcodone/Acet 5/325 mg TABLET PO PRN ×2 (02:35→21:40)
[2018-04-25] MEDS ORDERED: Acetaminophen 325 MG TABLET PO PRN ×2 (02:35→21:40)
[2018-04-25] MEDS ORDERED: Naloxone 0.4 MG/ML INJ IVP PRN ×2 (02:35→21:40)
[2018-04-25] MEDS ORDERED: *HR* HYDROmorphone (PF) 1 MG/ML SYRINGE IVP ONE (02:35)
[2018-04-25] MEDS ORDERED: Ondansetron 4 MG/2 ML VIAL IVP PRN ×2 (02:37→21:40)
[2018-04-25] MEDS: Ketorolac 30 MG/ML VIAL IVP ONE ×2 (03:29→03:31)
[2018-04-25] MEDS: Ringers Solution, Lactated 1,000 ML IVC SCH ×3 (03:51→23:42)
--- NOTE | 2018-04-25 03:56 | Internal Med History&Physical ---
Date of Encounter: 04/25/18 Time of Encounter: 03:54 Internal Medicine - H&P: HPI Chief complaint: flank pain Admitted From: Home Plans for Post Hospital Care: Home History of present illness: Francesca Whitfield is a 53-year-old woman with a history of recurrent kidney stones who presents today with a complaint of right-sided flank pain the commenced yesterday although she says it has been brewing for a few days prior. She de scribes it as colicky in nature but not associated with nausea/vomiting or dysuria. She says she has had multiple stones in the past some of which have required stents and another requiring lithotripsy. She denies feeling feverish or having chills or having diarrhea. She does acknowledge that her urine has been darker and foul-smelling of usual but has no discomfort or suprapubic tenderness. On arrival to the ER she was hemodynamically stable and a CT scan was done which showed moderate to severe right hydronephrosis secondary to a 1.5 calculus at the right UPJ although she has stones bilaterally. She is now admitted for further care. Past Med Surg Social Fam HX - Past Medical History Medical history: arthritis, coronary artery disease, GERD, hyperlipidemia, kidney stones Additional medical history: hx kidney stones,artifical heart valve,psoiasis Psychiatric history: no psych history - Past Surgical History Surgical History: appendectomy, , cholecystectomy, orthopedic, other Additional surgical history: tubal ligation,,collarbone,l knee replacement,ovarian cyst,cardiac cath stenting,lithrotripsy,left knee revision - Social History Smoking Status: Current every day smoker Smokeless Tobacco Status: No Alcohol use: occasionally Drug use: none - Family History Mother Living Status: Hx Family Cardiac Disorders: Yes Hx Family Respiratory Disorders: No Hx Family Cancer: Yes (Colon Cancer) Hx Family GI Disorders: Yes Hx Family Endocrine Disorder: Yes (Grandfather) Hx Family Neuromuscular Disorders: No Hx Family Neurologic Disorders: No Hx Family HEENT Disorders: No Hx Family Autoimmune Disorders: No Internal Medicine - H&P: Meds Atorvastatin Calcium [Lipitor] 40 mg PO HS 11/13/15 [History] Isosorbide MONOnitrate (24 HR) [Imdur] 60 mg PO HS #0 11/13/15 [History] Meloxicam [Mobic] 15 mg PO HS 11/13/15 [History] Metoprolol [Lopressor] 12.5 mg PO BID 11/13/15 [History] Nitroglycerin [Nitrostat] 0.4 mg SL Q5M PRN 11/13/15 [History] Pantoprazole Sodium [Protonix] 20 mg PO BID 11/13/15 [History] Ranolazine [Ranexa] 1,000 mg PO DAILY 11/13/15 [History] Aspirin Enteric Coated [Aspirin EC] 81 mg PO DAILY 11/22/15 [History] Alfuzosin HCl [Uroxatral] 10 mg PO DAILY #7 tab.er.24h 05/30/17 [Rx] Fluconazole [Diflucan] 150 mg PO DAILY #1 tab 05/30/17 [Rx] HYDROcodone/Acet 5/325 mg [[place] 5-325 mg] 1 tab PO Q4HR PRN #15 tablet 05/30/17 [Rx] levoFLOXacin [Levaquin] 500 mg PO DAILY #3 tablet 05/30/17 [Rx] Allergy/AdvReac Type Severity Reaction Status Date / Time Amoxicillin [From Augmentin] Allergy Hives Verified 04/24/18 21:02 clavulanic acid Allergy Hives Verified 04/24/18 21:02 [From Augmentin] Sulfa (Sulfonamide AdvReac yeast Verified 04/24/18 21:02 Antibiotics) infection All Systems PM: A 10-system review of systems was performed and is negative for pertinent findings except as documented above in the HPI. - Constitutional Vitals: Temp Pulse Resp BP Pulse Ox 98.0 F 69 15 120/73 95 04/25/18 02:52 04/25/18 02:52 04/25/18 02:52 04/25/18 02:52 04/25/18 02:52 Exam: Vitals: Reviewed General: Well-developed female lying comfortably in bed in no acute distress Skin: Warm and supple HEENT: Moist mucous membranes. No conjunctivae pallor. Neck: No lymphadenopathy. No JVD. No carotid bruits. No palpable thyroid. Chest: Normal thoracic expansion. Normal breath sounds. Clear to auscultation. Heart: Normal S1 & S2; rhythmic. No rubs or murmurs. Abdomen: Non-distended, soft and tender to palpation in the right flank. Positive right CVA tenderness. Extremities: No clubbing, cyanosis or edema. No calf tenderness. Normal distal pulses. Neurological: Awake, alert and oriented to person, place and time. No focal deficits. Psych: Affect appropriate. Internal Med - H&P Results - Labs CBC & Chem 7: 04/25/18 00:18 04/25/18 00:18 Labs: Short CBC 04/25/18 Range/Units 00:18 WBC 11.9 H (4.3-11.1) K/mcL Hgb 14.7 (11.5-15.4) g/dL Hct 44.8 (35.3-44.9) % Plt Count 238 (140-400) K/mcL Neutrophils # 8.5 (1.6-8.9) K/mcL BMP 04/25/18 00:18 Sodium 141 Potassium 3.8 Chloride 107 Carbon Dioxide 26 BUN 19 Creatinine 0.81 Glucose 104 Calcium 10.2 Urine 04/24/18 Range/Units 23:54 Urine Color Yellow (Yellow) Urine Clarity Cloudy A (Clear) Urine pH 6.0 (5.0-8.0) pH Units Ur Specific [place] 1.028 H (1.010-1.025) Urine Protein 100 H (Neg-Trace) mg/dL Urine Glucose (UA) Normal (Normal) mg/dL - Impressions ITS Impressions Abdomen/Pelvis CT 04/24/18 22:06 IMPRESSION: Moderate to severe right hydronephrosis secondary to a 1.5 cm calculus at the right UPJ. Redemonstration of bilateral nephrolithiasis. Punctate inflammatory appearing tree-in-bud nodules within the right middle lobe, new when compared to the previous exam. Correlate with any clinical evidence of inflammatory or infectious bronchiolitis. New atelectasis is also identified within the lingula. The should be followed radiographically to resolution. D/ / Scot Gabriel MD / Scot Gabriel MD Interpreting Provider: Scot Gabriel MD - Assessment and plan (1) Right ureteral stone Current Visit: Yes Status: Acute Assessment and plan: Very large stone and symptomatic. Will place on IVF, analgesics as needed, tamsulosin, urology consult and keep NPO in the interim for possible procedure. (2) CAD (coronary artery disease) Current Visit: Yes Status: Acute Assessment and plan: Awaiting confirmation and reconciliation of home meds, she will need to resume antiplatelet and statin therapy once feasible. Qualifiers: Coronary Disease-Associated Artery/Lesion type: [place] artery [place] vs. transplanted heart: [place] heart Associated angina: without angina Qualified Code(s): I25.10 - Atherosclerotic heart disease of [place] coronary artery without angina pectoris (3) GERD (gastroesophageal reflux disease) Current Visit: Yes Status: Acute Assessment and plan: Antacids prn. Qualifiers: Esophagitis presence: without esophagitis Qualified Code(s): K21.9 - Gastro -esophageal reflux disease without esophagitis (4) DVT prophylaxis Current Visit: Yes Status: Acute Assessment and plan: IPC for now, avoiding heparin in case of intervention planned. - Time Spent With Patient Total time spent is greater than 50% in coordination of care (as documented) at patient's floor/unit and/or counseling patient: Greater than 35 minutes
[2018-04-25 05:16] LABS: INR 1.1; Prothrombin Time 12.3 Seconds (9.4-12.1)
[2018-04-25 05:18] LABS: Activated Partial Thrombo Time 34.3 Seconds (26.0-36.0)
--- NOTE | 2018-04-25 10:16 | Internal Med Progress Note ---
Hospitalist Progress Note - Encounter Date of Encounter: 04/25/18 Time of Encounter: 11:00 - Subjective Interval History: Francesca Whitfield is a 53-year-old woman with a history of recurrent kidney stones who presents today with a complaint of right-sided flank pain the commenced yesterday although she says it has been brewing for a few days prior. She de scribes it as colicky in nature but not associated with nausea/vomiting or dysuria. She says she has had multiple stones in the past some of which have required stents and another requiring lithotripsy. She denies feeling feverish or having chills or having diarrhea. She does acknowledge that her urine has been darker and foul-smelling of usual but has no discomfort or suprapubic tenderness. On arrival to the ER she was hemodynamically stable and a CT scan was done which showed moderate to severe right hydronephrosis secondary to a 1.5 calculus at the right UPJ although she has stones bilaterally. She is now admitted for further care. She was given a dose of Levaquin in the ED, she was started on Cipro on admission. Urology has been consulted and patient placed on IV fluids and given analgesics and Flomax. - Exam Vitals: Temp Pulse Resp BP Pulse Ox 98 F 63 16 98/59 92 04/25/18 07:48 04/25/18 07:48 04/25/18 07:48 04/25/18 07:48 04/25/18 07:48 Exam: General: Well-developed female lying comfortably in bed in no acute distress Skin: Warm and supple HEENT: Moist mucous membranes. No conjunctivae pallor. Neck: No lymphadenopathy. No JVD. No carotid bruits. No palpable thyroid. Chest: Normal thoracic expansion. Normal breath sounds. Clear to auscultation. Heart: Normal S1 & S2; rhythmic. No rubs or murmurs. Abdomen: Non-distended, soft and tender to palpation in the right flank. Pos itive right CVA tenderness. Extremities: No clubbing, cyanosis or edema. No calf tenderness. Normal distal pulses. - Assessment and Plan (1) Right ureteral stone Current Visit: Yes Status: Acute Assessment and Plan: Very large stone and symptomatic. Will place on IVF, analgesics as needed, tamsulosin, Urology consult and keep NPO Likely stent placement today (2) CAD (coronary artery disease) Current Visit: Yes Status: Acute Assessment and Plan: Aspirin, Lipitor (3) GERD (gastroesophageal reflux disease) Current Visit: Yes Status: Acute Assessment and Plan: Antacids prn. (4) DVT prophylaxis Current Visit: Yes Status: Acute Assessment and Plan: EPCD (5) Upper respiratory tract infection Current Visit: Yes Status: Acute Assessment and Plan: Patient was at primary care physician diagnosed with sinusitis. Also, CT of abdomen and pelvis showed tree-in-bud nodules in right middle lobe, possibly br onchiolitis. She was on doxycycline by primary care physician. Will do Levaquin to cover URI and also any urinary tract infection. - Time Spent with Patient Total time spent is greater than 50% in coordination of care (as documented) at patient's floor/unit and/or counseling patient: Internal Medicine: Result - Labs CBC & Chem 7: 04/25/18 00:18 04/25/18 00:18 Labs: Short CBC 04/25/18 Range/Units 00:18 WBC 11.9 H (4.3-11.1) K/mcL Hgb 14.7 (11.5-15.4) g/dL Hct 44.8 (35.3-44.9) % Plt Count 238 (140-400) K/mcL Neutrophils # 8.5 (1.6-8.9) K/mcL BMP 04/25/18 00:18 Sodium 141 Potassium 3.8 Chloride 107 Carbon Dioxide 26 BUN 19 Creatinine 0.81 Glucose 104 Calcium 10.2 Urine 04/24/18 Range/Units 23:54 Urine Color Yellow (Yellow) Urine Clarity Cloudy A (Clear) Urine pH 6.0 (5.0-8.0) pH Units Ur Specific [place] 1.028 H (1.010-1.025) Urine Protein 100 H (Neg-Trace) mg/dL Urine Glucose (UA) Normal (Normal) mg/dL - ABG Interpretation ABG results: PT/INR, D-dimer PT 12.3 Seconds (9.4-12.1) H 04/25/18 04:18 - Impressions Impressions Abdomen/Pelvis CT 04/24/18 22:06 IMPRESSION: Moderate to severe right hydronephrosis secondary to a 1.5 cm calculus at the right UPJ. Redemonstration of bilateral nephrolithiasis. Punctate inflammatory appearing tree-in-bud nodules within the right middle lobe, new when compared to the previous exam. Correlate with any clinical evidence of inflammatory or infectious bronchiolitis. New atelectasis is also identified within the lingula. The should be followed radiographically to resolution. D/ / Scot Gabriel MD / Scot Gabriel MD Interpreting Provider: Scot Gabriel MD Consult Discharge Plan - Plan [facility]errals: [facility] [Primary Care Provider] - (2) CAD (coronary artery disease) Qualifiers: Coronary Disease-Associated Artery/Lesion type: [place] artery [place] vs. transplanted heart: [place] heart Associated angina: without angina Qualified Code(s): I25.10 - Atherosclerotic heart disease of [place] coronary artery without angina pectoris (3) GERD (gastroesophageal reflux disease) Qualifiers: Esophagitis presence: without esophagitis Qualified Code(s): K21.9 - Gastro- esophageal reflux disease without esophagitis (5) Upper respiratory tract infection Qualifiers: URI type: unspecified URI Qualified Code(s): J06.9 - Acute upper respiratory infection, unspecified
--- NOTE | 2018-04-25 10:34 | Urology - Consult Note ---
Date of Encounter: 04/25/18 Time of Encounter: 10:32 - Assessment and Plan (1) Hydronephrosis Current Visit: Yes Status: Acute Assessment and plan: Secondary to obstructing proximal right ureteral calculus. Plan: Urinary diversion by stenting Qualifiers: Hydronephrosis type: with ureteral calculous obstruction Qualified Code(s): N13.2 - Hydronephrosis with renal and ureteral calculous obstruction (2) Right flank pain Current Visit: Yes Status: Acute Assessment and plan: Secondary hydronephrosis. Plan: Address of stone as below. (3) Right ureteral stone Current Visit: Yes Status: Acute Assessment and plan: 15 mL obstructing right proximal ureteral calculus. Discussed findings with patient and options for surgical address. Plan: Urgent urinary diversion with stenting for pain control during this admission. Follow-up with Dr. Morton her establish urologist as outpatient for definitive management of stone via ESWL for PCNL. (4) Kidney stone Current Visit: No Status: Acute Assessment and plan: Patient was smaller nonobstructing stones of the left kidney. These are not clinically significant size at this point in time. However given her bilateral stones and history of same a metabolic evaluation is indicated. Plan: Outpatient metabolic evaluation for stone prevention Urology CN:HPI Consult date: 04/25/18 Reason for consult Urology: Hydronephrosis Requesting physician: Haley Larkin History of present illness: Very pleasant 53-year-old lady with a long-standing history of nephrolithiasis. She presented emergency department last evening with right-sided flank pain. Workup included CT which reveals a greater than 1 cm stone in the proximal right ureter with subsequent hydroureteronephrosis. The patient is significantly symptomatic. She has no signs of sepsis or infection. She denies exacerbating or remitting factors to her discomfort. She has no gross hematuria. She has no dysuria. Past Med Surg Social Fam HX - Past Medical History Medical history: arthritis, coronary artery disease, GERD, hyperlipidemia, kidney stones Additional medical history: hx kidney stones,artifical heart valve,psoiasis Psychiatric history: no psych history - Past Surgical History Surgical History: appendectomy, , cholecystectomy, orthopedic, other Additional surgical history: tubal ligation,,collarbone,l knee replacement,ovarian cyst,cardiac cath stenting,lithrotripsy,left knee revision - Social History Smoking Status: Current every day smoker Smokeless Tobacco Status: No Alcohol use: occasionally Drug use: none - Family History Mother Living Status: Hx Family Cardiac Disorders: Yes Hx Family Respiratory Disorders: No Hx Family Cancer: Yes (Colon Cancer) Hx Family GI Disorders: Yes Hx Family Endocrine Disorder: Yes (Grandfather) Hx Family Neuromuscular Disorders: No Hx Family Neurologic Disorders: No Hx Family HEENT Disorders: No Hx Family Autoimmune Disorders: No Medications and Allergies Atorvastatin Calcium [Lipitor] 40 mg PO HS 11/13/15 [History] Isosorbide MONOnitrate (24 HR) [Imdur] 60 mg PO HS #0 11/13/15 [History] Meloxicam [Mobic] 15 mg PO HS 11/13/15 [History] Metoprolol [Lopressor] 12.5 mg PO BID 11/13/15 [History] Nitroglycerin [Nitrostat] 0.4 mg SL Q5M PRN 11/13/15 [History] Pantoprazole Sodium [Protonix] 20 mg PO BID 11/13/15 [History] Ranolazine [Ranexa] 1,000 mg PO DAILY 11/13/15 [History] Aspirin Enteric Coated [Aspirin EC] 81 mg PO DAILY 11/22/15 [History] Alfuzosin HCl [Uroxatral] 10 mg PO DAILY #7 tab.er.24h 05/30/17 [Rx] Fluconazole [Diflucan] 150 mg PO DAILY #1 tab 05/30/17 [Rx] HYDROcodone/Acet 5/325 mg [Coker 5-325 mg] 1 tab PO Q4HR PRN #15 tablet 05/30/17 [Rx] levoFLOXacin [Levaquin] 500 mg PO DAILY #3 tablet 05/30/17 [Rx] Allergy/AdvReac Type Severity Reaction Status Date / Time Amoxicillin [From Augmentin] Allergy Hives Verified 04/24/18 21:02 clavulanic acid Allergy Hives Verified 04/24/18 21:02 [From Augmentin] Sulfa (Sulfonamide AdvReac yeast Verified 04/24/18 21:02 Antibiotics) infection Review of Systems - Constitutional no chills, no fever(s) - EENT Nose, mouth and throat: no dry mouth, no headache(s) - Cardiovascular no chest pain, no dyspnea - Respiratory no cough, no dyspnea - Gastrointestinal abdominal pain, nausea - Genitourinary Genitourinary: flank pain, no dysuria - Musculoskeletal back pain, no muscle weakness - Integumentary no erythema, no rash - Neurological no confusion, no sensory deficit - Psychiatric no anxiety, no confusion - Allergic/Immunologic no throat swelling, no wheezing Exam Initial Vital Signs Temp Pulse Resp BP Pulse Ox 98.1 F 95 18 120/83 93 04/24/18 21:00 04/24/18 21:00 04/24/18 21:00 04/24/18 21:00 04/24/18 21:00 - General physical appearance Present: well developed, moderate pain - Eyes Present: normal ocular movement - ENT Present: normal nares, normal mucosa - Neck Present: trachea midline, no lymphadenopathy - Respiratory Present: normal respiratory effort - Cardiovascular Cardiovascular exam IM: RRR - Abdomen Abdomen: Present: soft, masses - Integumentary Present: no rash, no abnormal pigmentation - Neurologic Present: normal coordination - Musculoskeletal Present: normal gait Urology Results - Labs 04/25/18 00:18 04/25/18 00:18 Abnormal lab results WBC 11.9 K/mcL (4.3-11.1) H 04/25/18 00:18 PT 12.3 Seconds (9.4-12.1) H 04/25/18 04:18 POC Glucose 106 mg/dL (70-99) H 04/25/18 05:22 Urine Clarity Cloudy (Clear) A 04/24/18 23:54 Ur Specific [place] 1.028 (1.010-1.025) H 04/24/18 23:54 Urine Protein 100 mg/dL (Neg-Trace) H 04/24/18 23:54 Urine Blood Moderate (Negative) H 04/24/18 23:54 Ur Leukocyte Esterase Moderate (Negative) H 04/24/18 23:54 Urine Microscopic RBC 50-100 per hpf (0-3) H 04/24/18 23:54 Urine Microscopic WBC TNTC per hpf (0-3) H 04/24/18 23:54 Ur Squamous Epith Cells Many per lpf (None-Few) H 04/24/18 23:54 Diabetes panel 04/25/18 Range/Units 00:18 Sodium 141 (136-145) mEq/L Potassium 3.8 (3.5-5.1) mEq/L Chloride 107 (98-107) mEq/L Carbon Dioxide 26 (23-29) mEq/L BUN 19 (6-20) mg/dL Creatinine 0.81 (0.60-1.20) mg/dL Glucose 104 (70-105) mg/dL Calcium 10.2 (8.6-10.3) mg/dL Calcium panel 04/25/18 Range/Units 00:18 Calcium 10.2 (8.6-10.3) mg/dL Pituitary panel 04/25/18 Range/Units 00:18 Sodium 141 (136-145) mEq/L Potassium 3.8 (3.5-5.1) mEq/L Chloride 107 (98-107) mEq/L Carbon Dioxide 26 (23-29) mEq/L BUN 19 (6-20) mg/dL Creatinine 0.81 (0.60-1.20) mg/dL Glucose 104 (70-105) mg/dL Calcium 10.2 (8.6-10.3) mg/dL Adrenal panel 04/25/18 Range/Units 00:18 Sodium 141 (136-145) mEq/L Potassium 3.8 (3.5-5.1) mEq/L Chloride 107 (98-107) mEq/L Carbon Dioxide 26 (23-29) mEq/L BUN 19 (6-20) mg/dL Creatinine 0.81 (0.60-1.20) mg/dL Glucose 104 (70-105) mg/dL Calcium 10.2 (8.6-10.3) mg/dL All other labs normal. - Imaging CT scan - abdomen: image reviewed CT scan - pelvis: image reviewed (Image of CT abdomen and pelvis reviewed and interpreted independently) Consult Discharge Plan - Plan [facility]errals: [facility] [Primary Care Provider[facility] -
[2018-04-25] MEDS: *HR* OxyCODONE Immed Rel 5 MG TABLET PO PRN ×2 (10:50→16:31)
[2018-04-25] MEDS ORDERED: *HR* Promethazine 25 MG/ML VIAL IVP PRN ×2 (13:49→21:40)
[2018-04-25] MEDS ORDERED: Nitroglycerin 0.4 MG TAB.SUBL SL PRN ×2 (16:30→21:40)
[2018-04-25] MEDS ORDERED: Albuterol 2.5 MG/3 ML NEBULIZER ONE (19:58)
[2018-04-25] MEDS ORDERED: Albuterol 2.5 MG/3 ML NEBULIZER IH ONE (20:00)
--- NOTE | 2018-04-25 20:03 | Anesthesia Evaluation PreOp ---
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 HX Other Medical History: GERD Anesthesia History: No Prior Anesthetic Complications Alcohol Use: occasionally Drug use: none Medications and Allergies Atorvastatin Calcium [Lipitor] 40 mg PO HS 11/13/15 [History] Meloxicam [Mobic] 15 mg PO HS 11/13/15 [History] Metoprolol [Lopressor] 12.5 mg PO BID 11/13/15 [History] Nitroglycerin [Nitrostat] 0.4 mg SL Q5M PRN 11/13/15 [History] Pantoprazole Sodium [Protonix] 20 mg PO BID 11/13/15 [History] Aspirin Enteric Coated [Aspirin EC] 81 mg PO DAILY 11/22/15 [History] Amitriptyline [Elavil] 25 mg PO HS 04/25/18 [History] Doxycycline Monohydrate [Mondoxyne Nl] 100 mg PO BID 04/25/18 [History] Gabapentin [Neurontin] 600 mg PO TID 04/25/18 [History] Allergy/AdvReac Type Severity Reaction Status Date / Time Amoxicillin [From Augmentin] Allergy Hives Verified 04/24/18 21:02 clavulanic acid Allergy Hives Verified 04/24/18 21:02 [From Augmentin] Sulfa (Sulfonamide AdvReac yeast Verified 04/24/18 21:02 Antibiotics) infection - Meds/Allergy Pre-op Review Medications Reviewed: Yes Allergies Reviewed: Yes Beta Blockers on Current Med List: Yes (on metoprolol) Anesthesia Results - Labs 04/25/18 00:18 04/25/18 00:18 - Imaging EKG: report reviewed (SR) Anesthesia Exam Vital Signs/O2 Sat/Glucose, Most Current Temp Pulse Resp BP Pulse Ox 04/25/18 16:49 98.6 F 68 14 103/69 90 Height: 5'4 Weight: 151 lbs NPO (# of Hours): MN Pain Scale: 0 - HEENT Pupil (Motor): Pupils equal, EOMI Mallampati: II Teeth: Edentulous Oral Opening: Greater than 3 - BINDERY CUTTER OPERATOR LOC: Oriented BINDERY CUTTER OPERATOR Motor: Normal RUE, Normal LUE, Normal RLE, Normal LLE, Normal Face BINDERY CUTTER OPERATOR Sensory: Normal: RUE, LUE, RLE, LLE, Face - Cardiac Rhythm: Regular Murmur: None JVD: No Carotid Bruit: No - Pulmonary Breath Sounds: bilateral Clear Respiratory Effort: Symmetrical Anesthesia Assess/Plan ASA Score: 3 (CAD HTN Tobacco) Modified Kg Scale for Level of Consciousness: Cooperative, oriented, and tranquil Anesthetic Plan: General Monitoring Plan: Standard Monitors Recovery Plan: PACU (Discussed GA, agrees to proceed)
[2018-04-25] MEDS ORDERED: *HR* Propofol 200 MG/20 ML VIAL IVP ONE (20:17)
[2018-04-25] MEDS ORDERED: Lidocaine -MPF 2% 2 ML VIAL ONE (20:17)
[2018-04-25] MEDS ORDERED: *HR* FentaNYL (PF) 100 MCG/2 ML VIAL ONE (20:17)
[2018-04-25] MEDS ORDERED: Ondansetron 4 MG/2 ML VIAL ONE (20:17)
[2018-04-25] MEDS ORDERED: Dexamethasone 4 MG/ML VIAL ONE (20:17)
[2018-04-25] MEDS ORDERED: Isovue-300 30 ML VIAL ONE (20:24)
[2018-04-25] MEDS ORDERED: Lidocaine -MPF 4% 5 ML AMPUL ONE (20:31)
[2018-04-25] MEDS ORDERED: *HR* PHENYLEPHRINE 1,000 MCG/10 ML SYRINGE IVP ONE (20:44)
--- NOTE | 2018-04-25 20:58 | Operative Note ---
Date of procedure: 04/25/18 Pre-op diagnosis: Right ureteral calculus Post-op diagnosis: same Procedure: Cystoscopy, right retrograde ureteral pyelography with intraoperative interpretation of all images by surgeon in real time to facilitate procedure, right double-J stent placement under fluoroscopic guidance. Implants: Right JJ stent Complications: none Anesthesia: GETA Surgeon: Naga Davis Was there an emergency veterinary assistant present: No Estimated blood loss (cc): 0 Specimen: none Condition: stable Disposition: PACU Procedure in Detail: The patient was brought to the operating theater identified by name and and administered a general anesthetic. The patient was positioned in dorsal lithotomy where she was prepped and draped in a normal sterile fashion. Cystoscope was inserted into the urethral meatus and advanced with bladder under direct visualization. Urine was slightly cloudy but there were no mucosal abnormalities of bladder or urethra. An open-ended catheter was placed and the tip of the right ureteral orifice and with gentle injection of contrast a right retrograde ureteropyelogram was performed. Intraoperative interpretation of the right retrograde ureteropyelogram revealed normal distal and mid ureter. In the proximal ureter there was a large filling defect consistent with the stone seen on CT. Above this there was significant hydroureteronephrosis. No other suspicious lesions or abnormality were identified. At this point, a Glidewire was advanced into the right renal pelvis. All instruments were removed except for the Glidewire. Over the Glidewire and under fluoroscopic guidance a 6 x 24 double-J stent was advanced. Once the stent was felt in good position the Glidewire was removed. Proximal and distal curls of the stent in good position were confirmed fluoroscopically. This ended the operative procedure.
[2018-04-25] MEDS ORDERED: Gabapentin 300 MG CAPSULE PO SCH (21:00)
[2018-04-25] MEDS ORDERED: *HR* OxyCODONE Immed Rel 5 MG TABLET PO PRN (21:40)
--- NOTE | 2018-04-25 22:15 | Anesthesia Evaluation Post Op ---
Date of Encounter: 04/25/18 Time of Encounter: 21:30 - Vital Signs Vital Signs: Vital Signs/O2 Sat/Glucose, Most Current Temp Pulse Resp BP Pulse Ox 04/25/18 21:54 98.9 F 93 16 127/76 96 04/25/18 21:28 98.6 F 73 16 126/65 96 04/25/18 21:18 82 16 131/67 94 04/25/18 21:08 78 16 124/75 93 04/25/18 20:58 99.0 F 86 12 120/68 98 - Lungs Lungs: Clear Ascult./Percussion - Airway Airway: Non-obstructed - Cardiovascular Regular Rate - Mental Status Mental Status: Alert & Oriented, Answers Appropriately - Pain Pain Scale: 0 - Nausea Vomiting Nausea Vomiting: Not Present - Hydration Hydration: Ice chips - Discharge PostOp Status: Transfer Patient to floor
[2018-04-26 05:56] LABS: Basophils % 0.1 %; Hematocrit 40.2 % (35.3-44.9); Hemoglobin 13.5 g/dL (11.5-15.4); Immature Granulocytes % 0.2 % (0-4); Lymphocytes # 0.9 K/mcL (0.6-4.6); Lymphocytes % 10.6 %; Mean Corpuscular HGB Conc 33.6 g/dL (31.6-35.5); Mean Corpuscular Hemoglobin 31.8 pg (28.0-33.3); Mean Corpuscular Volume 94.8 fL (83.0-100.0); Mean Platelet Volume 10.4 fL (9.4-12.4); Monocytes # 0.4 K/mcL (0.0-1.3); Monocytes % 4.3 %; Neutrophils # 7.2 K/mcL (1.6-8.9); Platelet Count 247 K/mcL (140-400); Red Blood Count 4.24 M/mcL (3.82-4.97); Red Cell Distribution Width 12.8 % (11.5-14.5); Segmented Neutrophils % 84.8 %
[2018-04-26 06:15] LABS: BUN/Creatinine Ratio 24 (6-26); Blood Urea Nitrogen 17 mg/dL (6-20); Calcium 9.6 mg/dL (8.6-10.3); Carbon Dioxide 23 mEq/L (23-29); Chloride 107 mEq/L (98-107); Glucose 194 mg/dL (70-105); Osmolality,Calculated 293 (280-300); Potassium 3.9 mEq/L (3.5-5.1); Sodium 138 mEq/L (136-145); eGFR For Non-African Americans > 60 (> 60)
[2018-04-26] MEDS: Ringers Solution, Lactated 1,000 ML IVC SCH ×3 (07:33→10:30)
[2018-04-26 07:44] VITALS: BP 103/67
[2018-04-26] MEDS ORDERED: Aspirin Enteric Coated 81 MG Tablet PO SCH ×2 (09:00)
[2018-04-26] MEDS ORDERED: levoFLOXacin 750 MG TABLET PO SCH ×2 (09:00)
[2018-04-26] MEDS ORDERED: Gabapentin 300 MG CAPSULE PO SCH (09:00)
--- NOTE | 2018-04-26 10:50 | Discharge Summary ---
- NOTES TO OUTPATIENT PROVIDER Notes to Outpatient Provider: - Follow-up to be arranged bu Urology. Finish 3 more days of Levaquin. Oxybutinin on discharge for spasms. Date of Encounter: 04/26/18 Time of Encounter: 10:48 - Discharge Diagnosis (1) Right ureteral stone Priority: Primary Status: Acute Assessment and Plan: Urology placed stent on 04/25 (2) CAD (coronary artery disease) Priority: Secondary Status: Acute Qualifiers: Coronary Disease-Associated Artery/Lesion type: [place] artery [place] vs. transplanted heart: [place] heart Associated angina: without angina Qualified Code(s): I25.10 - Atherosclerotic heart disease of [place] coronary artery without angina pectoris (3) GERD (gastroesophageal reflux disease) Priority: Secondary Status: Acute Qualifiers: Esophagitis presence: without esophagitis Qualified Code(s): K21.9 - Gastro-esophageal reflux disease without esophagitis (4) DVT prophylaxis Priority: Secondary Status: Acute (5) Upper respiratory tract infection Priority: Secondary Status: Acute Qualifiers: URI type: unspecified URI Qualified Code(s): J06.9 - Acute upper respiratory infection, unspecified Hospital course: Francesca Whitfield is a 53-year-old woman with a history of recurrent kidney stones who presents today with a complaint of right-sided flank pain the commenced yesterday although she says it has been brewing for a few days prior. She describes it as colicky in nature but not associated with nausea/vomiting or dysuria. She says she has had multiple stones in the past some of which have required stents and another requiring lithotripsy. She denies feeling feverish or having chills or having diarrhea. She does acknowledge that her urine has been darker and foul-smelling of usual but has no discomfort or suprapubic tenderness. On arrival to the ER she was hemodynamically stable and a CT scan was done which showed moderate to severe right hydronephrosis secondary to a 1.5 calculus at the right UPJ although she has stones bilaterally. She is now admitted for further care. Urology was consulted. She had a stent placed on 04/25, tolerated well. She was discharged home in stable condition to follow-up with Urology as outpatient. - Time Spent with Patient Total time spent providing and/or coordinating discharge services: - Discharge Medications Prescriptions: OxyCODONE Immed Rel [Roxicodone 5 MG] 5 mg PO Q6HR PRN 5 Days #20 tablet PRN Reason: Severe Pain Docusate [Colace] 100 mg PO DAILY 5 Days #5 capsule levoFLOXacin [Levaquin] 750 mg PO DAILY #3 tablet Tamsulosin [Flomax] 0.4 mg PO DAILY #14 capsule Home Medications: Atorvastatin Calcium [Lipitor] 40 mg PO HS 11/13/15 [History] Meloxicam [Mobic] 15 mg PO HS 11/13/15 [History] Metoprolol [Lopressor] 12.5 mg PO BID 11/13/15 [History] Nitroglycerin [Nitrostat] 0.4 mg SL Q5M PRN 11/13/15 [History] Pantoprazole Sodium [Protonix] 20 mg PO BID 11/13/15 [History] Aspirin Enteric Coated [Aspirin EC] 81 mg PO DAILY 11/22/15 [History] Amitriptyline [Elavil] 25 mg PO HS 04/25/18 [History] Doxycycline Monohydrate [Mondoxyne Nl] 100 mg PO BID 04/25/18 [History] Gabapentin [Neurontin] 600 mg PO TID 04/25/18 [History] Docusate [Colace] 100 mg PO DAILY 5 Days #5 capsule 04/26/18 [Rx] OxyCODONE Immed Rel [Roxicodone 5 MG] 5 mg PO Q6HR PRN 5 Days #20 tablet 04/26/18 [Rx] Promethazine [Phenergan] 25 mg PO Q8HR PRN #21 tablet 04/26/18 [Rx] Solifenacin Succinate [Vesicare] 10 mg PO DAILY PRN #7 tablet 04/26/18 [Rx] Tamsulosin [Flomax] 0.4 mg PO DAILY #14 capsule 04/26/18 [Rx] Allergies/Adverse Reactions: Allergy/AdvReac Type Severity Reaction Status Date / Time Amoxicillin [From Augmentin] Allergy Hives Verified 04/24/18 21:02 clavulanic acid Allergy Hives Verified 04/24/18 21:02 [From Augmentin] Sulfa (Sulfonamide AdvReac yeast Verified 04/24/18 21:02 Antibiotics) infection Date of admission: 04/25/18 01:55 Primary care physician: [facility] Discharging clinician: Janes Shin - Constitutional Vitals: Temp Pulse Resp BP Pulse Ox 98.2 F 67 16 103/67 94 04/26/18 07:36 04/26/18 07:36 04/26/18 07:36 04/26/18 07:36 04/26/18 07:36 Exam: . - Head Head exam: Present: atraumatic, normocephalic - Eye Eye exam: Present: PERRL, conjuntiva pink, sclera anicteric Pupils: Present: PERRL - Neck Neck exam general surgery: Present: supple, trachea midline. Absent: lymphadenopathy - Respiratory Respiratory exam: Present: CTAB. Absent: accessory muscle use, rales, rhonchi, wheezes - Cardiovascular Cardiovascular exam: Present: RRR, +S1, +S2. Absent: diastolic murmur, gallop, rubs, systolic murmur - GI/Abdominal GI/Abdominal exam: Present: normal bowel sounds, soft, no peritoneal signs. Absent: distended, tenderness - Extremities Exam Extremities exam: Present: warm, radial pulses palpable and symmetrical. Absent: calf tenderness, cyanotic, pedal edema - Neurological Exam Neurological exam: Present: CN II-XII intact, oriented X3, no focal deficits. Absent: pronater drift, facial droop, speech deficit - Skin Skin exam: Present: dry, intact - Patient Status Disposition: Home, Self-Care Condition: Fair Functional capacity at discharge: independent ambulation Overall status at discharge: patient is back to baseline - Discharge Instructions Follow Up With: [facility]Primary Care Provider[facility] - - Diet and Activity Activity: increase activity as tolerated Diet: advance to your usual diet
== END 2018-04-26 11:54 | disposition home or self-care (01) | DRG 661 ==
LOC: EMEROOARM 20:18 → 3ANU 20:18 → SUATTDRO 04-25 01:55 → 3ANU 04-25 01:58
PROVIDERS: ADMIT Internal Medicine; ATTEND Student in an Organized Health Care Education/Training Program